=== PATIENT | female | born 1955 | race Caucasian/White ===

== ENCOUNTER 2025-05-05 06:45 | Day surgery (SDC) | payer OTHER ==
[~2025-05-05 06:45] MED LIST: Lactated Ringers 1,000 ML IV SCH; Sodium Chloride 0.9% 10 ML Syringe FLUSH PRN; Sodium Chloride 0.9% 10 ML Syringe FLUSH SCH
[2025-05-05] MEDS ORDERED: dexmedeTOMIDine HCl 200 MCG/2 ML SDV ONE (07:15)
[2025-05-05] MEDS ORDERED: Dexamethasone 4 MG/ML 5 ML MDV ONE (07:15)
[2025-05-05] MEDS ORDERED: fentaNYL 100 MCG/2 ML SDV ONE (07:15)
[2025-05-05] MEDS ORDERED: propofoL 500 MG/50 ML 50 ML ONE (07:15)
[2025-05-05] MEDS ORDERED: Midazolam 1 MG/ML 2 ML SDV ONE (07:15)
[2025-05-05] MEDS ORDERED: Ropivacaine 0.5% 5 MG/ML 30 ML SDV ONE (07:15)
[2025-05-05] MEDS: Lactated Ringers 1,000 ML IV SCH (07:25)
[2025-05-05] MEDS: oxyCODONE ER 10 MG TAB.ER PO ONE (07:34)
[2025-05-05] MEDS ORDERED: Phenylephrine 1% 10 MG/ML SDV ONE (08:00)
[2025-05-05] MEDS ORDERED: ePHEDrine 50 MG/ML SDV ONE ×2 (08:00→08:15)
[2025-05-05] MEDS: Scopalamine 1mg/3day Transdermal Patch TRDERM PRN (08:01)
[2025-05-05] MEDS ORDERED: Glycopyrrolate 0.2 MG/ML 2 ML SDV ONE (08:33)
[2025-05-05] MEDS ORDERED: Enalaprilat 1.25 MG/ML SDV ONE (08:35)
[2025-05-05] MEDS ORDERED: Lactated Ringers 1,000 ML ONE (08:38)
[2025-05-05] MEDS ORDERED: Vasopressin 20 Units/1 ML MDV ONE (08:47)
[2025-05-05] MEDS: Morphine 8 MG, EPINEPHrine 0.3 MG, Cefuroxime 750 MG, Ketorolac 30 MG, Sodium Chloride ... PRN (09:16)
[2025-05-05] MEDS ORDERED: fentaNYL 100 MCG/2 ML SDV IVPUSH PRN (09:21)
[2025-05-05] MEDS ORDERED: Ondansetron 4 MG/2 ML SDV IVPUSH PRN (09:21)
[2025-05-05] MEDS: Triamcinolone Acetonide 40 MG/ML 1 ML SDV ONE (09:37)
== END 2025-05-05 13:45 | disposition home or self-care (01) ==
LOC: JD.SDS 06:45
PROVIDERS: ATTEND Orthopaedic Surgery
DX: M17.0 Bilateral primary osteoarthritis of knee (principal); E78.5 Hyperlipidemia, unspecified; E03.9 Hypothyroidism, unspecified; I25.10 Atherosclerotic heart disease of native coronary artery without angina pectoris; I10 Essential (primary) hypertension; K21.9 Gastro-esophageal reflux disease without esophagitis; Z91.0110 Allergy to milk products, unspecified; Z91.018 Allergy to other foods; Z91.010 Allergy to peanuts; Z79.890 Hormone replacement therapy; Z79.899 Other long term (current) drug therapy
CPT/HCPCS: 0055T; 20610; 27447; 64447; 73560; 97110; 97161; A9270; J0169; J0665; J0690; J0697; J1100; J1596; J1885; J2250; J2272; J2371; J2598; J2704; J2795; J3010; J3301; J3373; J7120; C1713; C1776; J3490